=== PATIENT | female | born 1985 | race Caucasian/White ===

== ENCOUNTER → 2021-01-29 08:37 | Outpatient (CLI) | payer OTHER, MEDICAID, SELFPAY ==
[2021-01-29 15:03] LABS: COVID19 -Nasal RAPID Negative (Negative)
== END ==
PROVIDERS: Family Provider Family Medicine Geriatric Medicine; PCP Family Medicine Geriatric Medicine; Visit Provider Obstetrics & Gynecology
DX: Z01.812 Encounter for preprocedural laboratory examination (principal); Z20.822 Contact with and (suspected) exposure to COVID-19
CPT/HCPCS: 87635

== ENCOUNTER 2021-01-30 08:43 | Day surgery (SDC) | payer OTHER, MEDICAID, SELFPAY ==
[2021-01-30] VITALS (8 sets, daily range): BP systolic 109–131; BP diastolic 55–77; PULSE 60–74; RESP 10–19; TEMP 36.3–36.9; O2SAT 97–100; BMI 33.4
--- NOTE | 2021-01-30 | PATH_ITS ---
[facility] Accession Number: [id number] . 01 Material submitted: . endometrium - ENDOMETRIAL . 02 Diagnosis: Endometrial: Portions of proliferative endometrium; negative for glandular hyperplasia, cytologic atypia, or malignancy. Portions of lower uterine segment; negative for glandular hyperplasia, cytologic atypia, or malignancy. V 02/04/2021 1015 Local . 02 Electronically signed: . Yolanda Gregory MD, Pathologist NPI- [id number] . 01 Gross description: . ENDOMETRIAL: Received in formalin are minute fragments of mucoid and hemorrhagic material measuring 2.5 x 0.6 x 0.3 cm in aggregate. Submitted in toto in 1 cassette. /TR 02/01/2021 1239 Local . 02 Pathologist provided ICD-10: N85.00 . 02 CPT . 415471 Performed at: 01 [facility] [address] [facility], [place], [place] [id number] MD Fran Blake MD Phone: [phone] Performed at: 02 [facility] [address] [place], [place] [id number] MD Erin Garrett MD Phone: [phone]
[2021-01-30] MEDS: LACTATED RINGERS 1,000 ML 100 ML IV (09:30)
--- NOTE | 2021-01-30 10:41 | P.HP_ITS ---
History of Present Illness History of Present Illness Date Patient Seen: 01/30/21 Time Patient Seen: 10:41 Chief complaint: [facility] [place] [facility] [place] Narrative: Patient is a 35-year-old 5 para 5 with menorrhagia. She is scheduled for a D&C hysteroscopy with NovaSure endometrial ablation Patient History Medical History (Updated 01/08/21 @ 15:13 by Carlie Bustamante MD) Anxiety and depression (~2015) Surgical History (Updated 02/08/18 @ 05:45 by Conversion Provider) Status post myringotomy with insertion of tube Status post tubal ligation (06/26/16) Family & Social History Family History (Updated 12/17/20 @ 13:43 by Rosaura Mcintyre) Father Cancer Social History: household members spouse Tobacco & Substance use: Smoking Status Never smoker alcohol intake current alcohol intake frequency holiday/special occasion Substance Use Type unknown,other Meds Home Medications and Allergies Home Medications Medication Instructions Recorded Confirmed Type levothyroxine 50 mcg PO QAM #30 tab 08/06/17 01/30/21 Rx citalopram [Celexa] 50 mg PO QDAY 01/30/21 01/30/21 History Allergies Allergy/AdvReac Type Severity Reaction Status Date / Time No Known Drug Allergies Allergy Verified 01/30/21 09:32 Exam Vital Signs (past 8 hours): - 01/30/21 09:39 Temperature 97.4 F L Pulse Rate 65 Respiratory Rate 13 Blood Pressure 109/62 Pulse Oximetry 100 Oxygen Delivery Method Room Air Narrative Exam Narrative: HEENT: No thyromegaly, no anterior cervical or supraclavicular lymphadenopathy. Lungs:Clear to auscultation bilaterally, no wheezes. Cardiovascular: Regular rate and rhythm, no murmurs, rubs, or gallops. Abdomen: No scars. No hepatosplenomegaly. No masses palpable. External genitalia: Normal Vagina: Normal Cervix: Normal Bimanual exam: 7 Week size anteverted uterus. Mobile. Rectal: No masses. Assessment & Plan Assessment & Plan narrative: Assessment: 35-year-old 5 para 5 with menorrhagia, suspect adenomyosis. Plan: D&C hysteroscopy with NovaSure endometrial ablation The risks, benefits, and alternatives to the procedure were explained to the patient. The risks including bleeding, infection, and uterine perforation. She understands these risks and agrees to proceed. A full par Q was held and consent form was signed. COVID-19 COVID-19 status: Negative Result date/Date tested (Pos, Neg/Pending): 01/29/21 Time Spent With Patient Time with patient: less than 15 minutes
--- NOTE | 2021-01-30 10:43 | PM.PREOP ---
Pre-operative Note COVID-19 COVID-19 status: Negative Result date/Date tested (Pos, Neg/Pending): 01/29/21 Interval Note History & Physical reviewed/Exam performed by Physician: Yes Changes to H&P: No H&P completed within 30 days and has changed as indicated here:: 01/30/21
--- NOTE | 2021-01-30 11:23 | SUR.OPER ---
Lithotomy on padded OR bed, head on pillow, arms secured on padded arm boards at <90 degrees abduction. Legs secured in padded yellow fins stirrups.
--- NOTE | 2021-01-30 11:32 | P.OP_ITS ---
Operative Date/Time/Diagnoses Date of procedure: 01/30/21 Time of procedure: 11:32 Pre-op diagnosis: Menorrhagia Post-op diagnosis: same Procedure & Clinicians Procedure: Procedures Operation Date: 01/30/21 09:45 Actual Procedures Side Surgeon p Darrenasure Endometrial Ablation Carlie Bustamante MD Indications: Menorrhagia Surgeon: Carlie Bustamante Anesthesia Type: General (LMA) Operative Notes Findings: Seven week size anteverted uterus Neither fallopian tube ostia observed Closure Type: not applicable Specimen(s): endometrial curettings Estimated blood loss (mL): 5 Blood products transfused: none Procedure in detail: After informed consent was obtained, the patient was taken to the operating room where she was placed in the dorsal supine position. After adequate LMA general anesthesia was achieved, she was placed in the dorsal l ithotomy position, and prepped and draped in the usual sterile fashion. A time- out was performed. A bivalve speculum was placed into the vagina and the anterior lip of the cervix grasped with a single-tooth tenaculum. Cervical os was sequentially dilated to the # 8 Hegar dilator. The hysteroscope passed easily into the endometrial cavity. Neither fallopian tube ostia was observed due to blood obscuring the field. Several attempts with increasing the pressure and the fluid outflow were unsuccessful at seeing the fallopian tube ostia. The hysteroscope was removed. Sharp curettage was performed yielding a moderate amount of endometrial curettings. The uterus was measured from the internal os to the fundus and measured 5 cm. This was set on the NovaSure generator and the catheter. The catheter passed easily into the endometrial cavity. The catheter was opened. The with of the uterus was 4.3 cm. This indicated a power of 118 w. The cervix was capped. The cavity assessment was performed and passed. The cycle was initiated and lasted 90 seconds. The cervix was uncapped, the catheter was closed and removed from the uterus. The single-tooth tenaculum was removed from the anterior lip of the cervix. The bivalve speculum was removed from the vagina. Sponge, lap, and instrument counts were correct x2. Patient tolerated the procedure well, and was taken to PACU in stable condition. Complications: none Post-operative Condition: stable Disposition: PACU Plan for aftercare: Home after recovery
[2021-01-30] MEDS: HYDROCODONE/ACET 5/325 TABLET 1 TAB PO (11:38)
--- NOTE | 2021-01-30 11:54 | SUR.PHASEI ---
Received to PACU at 1120. Airway patent, self maintained. Report from NACHO Carson and Dr Wood.
== END 2021-01-30 12:00 | disposition home or self-care (01) ==
PROVIDERS: Family Provider Family Medicine Geriatric Medicine; PCP Physician Assistant Medical; Referring Provider Obstetrics & Gynecology; Visit Provider Obstetrics & Gynecology
PROC: 0U5B8ZZ Destruction of Endometrium, Via Natural or Artificial Opening Endoscopic (ICD-10-PCS; CPT 58563; principal; 2021-01-30 09:45)
DX: N85.00 Endometrial hyperplasia, unspecified (principal); F41.9 Anxiety disorder, unspecified; F32.9 Major depressive disorder, single episode, unspecified; E03.9 Hypothyroidism, unspecified; E66.9 Obesity, unspecified
CPT/HCPCS: 58563; J1100; J1885; J2250; J2405; J2704; J3010